=== PATIENT | male | born 1965 | race Caucasian/White ===

== ENCOUNTER 2016-09-23 12:14 | Emergency (ER) | payer MEDICAID ==
[2014-07-18 07:16] VITALS: BMI 23.6
[~2016-09-23 12:14] MED LIST: CATAPRES0.2 MG PO; DILANTIN100 MG PO; HYDROCODONE-APA1 TAB PO; NORCO 7.5/325 T1 TA1 PO; PERCOCET 10/3251 TA1 PO; PROPRANOLOL HCL20 MG PO; PROVENTIL HFA6.7 GM INH; ROBAXIN-750750 MG PO; SOMA350 MG PO; XANAX1 MG PO; XANAX2 MG PO
== END 2016-09-23 14:15 | disposition home or self-care (01) ==
LOC: D.ER 12:14
DX: M54.16 Radiculopathy, lumbar region (principal); F17.200 Nicotine dependence, unspecified, uncomplicated

== ENCOUNTER 2017-05-23 17:21 | Inpatient (IN) | payer MEDICAID ==
[~2017-05-23] VITALS: Ht 172.7 cm; Wt 72.1 kg
[2017-05-23 17:56] LABS: BASOPHILS 0.1 % (0-2); EOSINOPHILS 0.3 % (0-7); HEMATOCRIT 47.7 % (42.0-54.0); HEMOGLOBIN 17.3 g/dL (13.5-17.5); IMMATURE GRANULOCYTES 0.5 % (0-5); LYMPHOCYTES 11.6 % (15-50); MCH 34.7 pg (26.0-34.0); MCHC 36.3 g/dL (31.0-37.0); MCV 95.6 fL (80.0-100.0); MONOCYTES 4.7 % (2-11); NEUTROPHILS 82.8 % (40-80); PLATELET COUNT 241 10x3/uL (130-400); RBC 4.99 10x6/uL (4.20-6.10); RDW 12.3 % (11.5-14.5); WBC 12.8 10x3/uL (4.8-10.8)
[2017-05-23 18:14] LABS: ALBUMIN 3.8 g/dL (3.4-5.0); ALKALINE PHOSPHATASE 86 U/L (46-116); ALT (SGPT) 31 U/L (10-68); BILIRUBIN - TOTAL 0.19 mg/dL (0.2-1.3); CALC OSMOLALITY 280 mosm/kg (275-300); CALCIUM 9.2 mg/dL (8.5-10.1); CARBON DIOXIDE 31.1 mmol/L (21.0-32.0); CHLORIDE - SERUM 103 mmol/L (98-107); CREATININE - SERUM 0.9 mg/dL (0.6-1.3); GLUCOSE 98 mg/dL (74-106); POTASSIUM - SERUM 4.3 mmol/L (3.5-5.1); PROTEIN - SERUM 7.6 g/dL (6.4-8.2); SODIUM 141 mmol/L (136-145); UREA NITROGEN 12 mg/dL (7-18); eGFR NON AFRICAN AMERICAN > 90 mL/min (90-120)
[2017-05-23 18:36] LABS: CHOL - HDL RATIO 3.9 ratio (2.3-4.9); CHOLESTEROL, TOTAL 220 mg/dL (0-200); CKMB 0.3 U/L (0.0-3.6); CREATINE KINASE 30 UL (21-232); HDL CHOLESTEROL 56 mg/dL (32-96); LDL CHOLESTEROL 124 mg/dL (0-100); LDL-HDL RATIO 2.2 ratio (1.5-3.5); MAGNESIUM - SERUM 2.1 mg/dL (1.8-2.4); PRO BNP 75 pg/mL (0-125); TRIGLYCERIDE 202 mg/dL (30-200)
[2017-05-23 18:37] LABS: TROPONIN-I < 0.017 ng/mL (0.000-0.060)
[2017-05-23] MEDS ORDERED: SEROQUEL100 MG PO (21:58)
[2017-05-23] MEDS ORDERED: COREG6.25 MG PO (21:58)
[2017-05-23] MEDS ORDERED: LIPITOR40 MG PO (21:59)
[2017-05-23 22:04] VITALS: BMI 25.1
[2017-05-24] VITALS: BP 123/72
[2017-05-24 01:08] LABS: CKMB 0.6 U/L (0.0-3.6); CREATINE KINASE 25 UL (21-232)
[2017-05-24 01:12] LABS: TROPONIN-I < 0.017 ng/mL (0.000-0.060)
[2017-05-24 04:00] VITALS: BP 125/73
[2017-05-24 06:40] LABS: BASOPHILS 0.1 % (0-2); EOSINOPHILS 1.4 % (0-7); HEMATOCRIT 43.1 % (42.0-54.0); HEMOGLOBIN 15.3 g/dL (13.5-17.5); IMMATURE GRANULOCYTES 0.2 % (0-5); LYMPHOCYTES 19.9 % (15-50); MCH 33.8 pg (26.0-34.0); MCHC 35.5 g/dL (31.0-37.0); MCV 95.4 fL (80.0-100.0); MEAN PLATELET VOLUME 9.1 fL (7.4-10.4); NEUTROPHILS 69.4 % (40-80); PLATELET COUNT 212 10x3/uL (130-400); RBC 4.52 10x6/uL (4.20-6.10); RDW 12.5 % (11.5-14.5)
[2017-05-24 07:14] LABS: CALC OSMOLALITY 276 mosm/kg (275-300); CALCIUM 8.4 mg/dL (8.5-10.1); CHLORIDE - SERUM 102 mmol/L (98-107); CKMB 0.5 U/L (0.0-3.6); CREATINE KINASE 23 UL (21-232); CREATININE - SERUM 0.8 mg/dL (0.6-1.3); GLUCOSE 106 mg/dL (74-106); POTASSIUM - SERUM 3.7 mmol/L (3.5-5.1); SODIUM 139 mmol/L (136-145); TROPONIN-I < 0.017 ng/mL (0.000-0.060); UREA NITROGEN 9 mg/dL (7-18); eGFR NON AFRICAN AMERICAN > 90 mL/min (90-120)
[2017-05-24 07:35] VITALS: BP 109/71
[2017-05-24 11:55] VITALS: BP 109/81
[2017-05-24 12:00] LABS: CKMB 0.4 U/L (0.0-3.6); CREATINE KINASE 29 UL (21-232)
[2017-05-24 12:04] LABS: TROPONIN-I < 0.017 ng/mL (0.000-0.060)
[2017-05-24 15:09] VITALS: BP 129/82
[2017-05-24 20:36] VITALS: BP 127/78
[2017-05-25 01:20] VITALS: BP 89/49
[2017-05-25 05:31] VITALS: BP 100/63
[2017-05-25 08:04] VITALS: BP 112/64
[2017-05-25 13:22] VITALS: BP 106/64
[2017-05-25 15:45] VITALS: BP 104/66
[2017-05-25 19:00] VITALS: BP 112/66
[2017-05-26 04:00] VITALS: BP 114/62
[2017-05-26 05:12] LABS: BASOPHILS 0 % (0-2); EOSINOPHILS 0.3 % (0-7); HEMATOCRIT 42.9 % (42.0-54.0); HEMOGLOBIN 15.4 g/dL (13.5-17.5); IMMATURE GRANULOCYTES 0.4 % (0-5); MCH 34.1 pg (26.0-34.0); MCHC 35.9 g/dL (31.0-37.0); MCV 95.1 fL (80.0-100.0); MEAN PLATELET VOLUME 9.4 fL (7.4-10.4); NEUTROPHILS 83.3 % (40-80); PLATELET COUNT 210 10x3/uL (130-400); RBC 4.51 10x6/uL (4.20-6.10); RDW 12.2 % (11.5-14.5); WBC 12.8 10x3/uL (4.8-10.8)
[2017-05-26 05:35] LABS: ALBUMIN 3.5 g/dL (3.4-5.0); ANION GAP 11.3 mmol/L (8-16); BILIRUBIN - TOTAL 0.19 mg/dL (0.2-1.3); CALCIUM 9.8 mg/dL (8.5-10.1); CARBON DIOXIDE 30.8 mmol/L (21.0-32.0); POTASSIUM - SERUM 4.1 mmol/L (3.5-5.1); PROTEIN - SERUM 6.7 g/dL (6.4-8.2)
[2017-05-26 05:38] LABS: CREATININE - SERUM 1.4 mg/dL (0.6-1.3)
[2017-05-26 08:31] VITALS: BP 128/73
[2017-05-26 12:00] VITALS: BP 126/71
[2017-05-26 19:00] VITALS: BP 132/76
[2017-05-27 04:00] VITALS: BP 122/62
[2017-05-27 06:04] LABS: BASOPHILS 0.1 % (0-2); EOSINOPHILS 1.7 % (0-7); HEMATOCRIT 44.5 % (42.0-54.0); HEMOGLOBIN 15.9 g/dL (13.5-17.5); IMMATURE GRANULOCYTES 0.3 % (0-5); LYMPHOCYTES 16.3 % (15-50); MCH 34.4 pg (26.0-34.0); MCHC 35.7 g/dL (31.0-37.0); MCV 96.3 fL (80.0-100.0); MEAN PLATELET VOLUME 9.4 fL (7.4-10.4); MONOCYTES 5.6 % (2-11); PLATELET COUNT 199 10x3/uL (130-400); RBC 4.62 10x6/uL (4.20-6.10); RDW 12.4 % (11.5-14.5); WBC 11.7 10x3/uL (4.8-10.8)
[2017-05-27 06:25] LABS: ALBUMIN 3.3 g/dL (3.4-5.0); ALKALINE PHOSPHATASE 80 U/L (46-116); ALT (SGPT) 27 U/L (10-68); BILIRUBIN - TOTAL 0.11 mg/dL (0.2-1.3); CALCIUM 8.9 mg/dL (8.5-10.1); CARBON DIOXIDE 27.4 mmol/L (21.0-32.0); CHLORIDE - SERUM 104 mmol/L (98-107); GLUCOSE 117 mg/dL (74-106); POTASSIUM - SERUM 3.7 mmol/L (3.5-5.1); PROTEIN - SERUM 6.9 g/dL (6.4-8.2); SODIUM 139 mmol/L (136-145)
[2017-05-27 06:28] LABS: CALC OSMOLALITY 279 mosm/kg (275-300); CREATININE - SERUM 0.9 mg/dL (0.6-1.3); UREA NITROGEN 16 mg/dL (7-18)
[2017-05-27 06:29] LABS: eGFR NON AFRICAN AMERICAN > 90 mL/min (90-120)
[2017-05-27 08:11] VITALS: BP 113/73
[2017-05-27 12:20] VITALS: Ht 172.7 cm; Wt 72.1 kg
[2017-05-27 12:29] VITALS: BP 112/71
[2017-05-27] MEDS ORDERED: PREDNISONE10 MG PO (13:55)
[2017-05-27] MEDS ORDERED: NICODERM C1 PATCH .1 TRANSDERM (13:55)
[2017-05-27] MEDS ORDERED: LEVAQUIN750 MG PO (13:56)
== END 2017-05-27 15:44 | disposition home or self-care (01) | DRG 190 ==
LOC: D.ER 17:21 → D.M2 21:10
PROVIDERS: Emergency Medicine; Family Medicine
DX: J44.0 Chronic obstructive pulmonary disease with (acute) lower respiratory infection (principal); J18.9 Pneumonia, unspecified organism; J98.11 Atelectasis; F17.203 Nicotine dependence unspecified, with withdrawal; I25.10 Atherosclerotic heart disease of native coronary artery without angina pectoris; E78.5 Hyperlipidemia, unspecified; G40.909 Epilepsy, unspecified, not intractable, without status epilepticus; I10 Essential (primary) hypertension; F41.9 Anxiety disorder, unspecified; Z95.1 Presence of aortocoronary bypass graft; J44.1 Chronic obstructive pulmonary disease with (acute) exacerbation; G89.4 Chronic pain syndrome

== ENCOUNTER 2017-10-17 16:36 | Emergency (ER) | payer MEDICAID ==
[2017-05-27 12:20] VITALS: BMI 24.1
[~2017-10-17 16:36] MED LIST changes: +COREG6.25 MG PO; +LEVAQUIN750 MG PO; +LIPITOR40 MG PO; +NICODERM C1 PATCH .1 TRANSDERM; +PREDNISONE10 MG PO; +SEROQUEL100 MG PO
[2017-10-17 17:10] LABS: BASOPHILS 0.1 % (0-2); EOSINOPHILS 2.3 % (0-7); HEMOGLOBIN 16.3 g/dL (13.5-17.5); IMMATURE GRANULOCYTES 0.4 % (0-5); LYMPHOCYTES 22.7 % (15-50); MCH 34.5 pg (26.0-34.0); MCV 93.2 fL (80.0-100.0); MEAN PLATELET VOLUME 9.4 fL (7.4-10.4); MONOCYTES 5.4 % (2-11); NEUTROPHILS 69.1 % (40-80); PLATELET COUNT 201 10x3/uL (130-400); RBC 4.72 10x6/uL (4.20-6.10); RDW 12.4 % (11.5-14.5); WBC 7.7 10x3/uL (4.8-10.8)
[2017-10-17 17:29] LABS: ALBUMIN 3.4 g/dL (3.4-5.0); ALKALINE PHOSPHATASE 82 U/L (46-116); ALT (SGPT) 21 U/L (10-68); BILIRUBIN - TOTAL 0.48 mg/dL (0.2-1.3); CALC OSMOLALITY 276 mosm/kg (275-300); CALCIUM 8.8 mg/dL (8.5-10.1); CARBON DIOXIDE 25.3 mmol/L (21.0-32.0); CHLORIDE - SERUM 106 mmol/L (98-107); CREATININE - SERUM 0.7 mg/dL (0.6-1.3); GLUCOSE 103 mg/dL (74-106); POTASSIUM - SERUM 3.6 mmol/L (3.5-5.1); SODIUM 140 mmol/L (136-145); UREA NITROGEN 7 mg/dL (7-18); eGFR NON AFRICAN AMERICAN > 90 mL/min (90-120)
[2017-10-17 17:40] LABS: CKMB 0.1 U/L (0.0-3.6); CREATINE KINASE 38 UL (21-232); TROPONIN-I < 0.017 ng/mL (0.000-0.060)
== END 2017-10-17 20:45 | disposition home or self-care (01) ==
LOC: D.ER 16:36
PROVIDERS: Emergency Medicine
DX: R07.9 Chest pain, unspecified (principal); R00.0 Tachycardia, unspecified; F17.200 Nicotine dependence, unspecified, uncomplicated

== ENCOUNTER 2017-11-14 17:06 | Inpatient (IN) | payer MEDICAID ==
[~2017-11-14] VITALS: Ht 172.7 cm; Wt 71.3 kg
[2017-11-14] MEDS ORDERED: PERCOCET 10/3251 TA1 PO (17:20)
[2017-11-14 17:39] VITALS: BP 118/70
[2017-11-14 17:47] LABS: BASOPHILS 0.1 % (0-2); EOSINOPHILS 2.2 % (0-7); HEMATOCRIT 40.8 % (42.0-54.0); HEMOGLOBIN 14.6 g/dL (13.5-17.5); IMMATURE GRANULOCYTES 0.2 % (0-5); LYMPHOCYTES 22.9 % (15-50); MCH 34.3 pg (26.0-34.0); MCHC 35.8 g/dL (31.0-37.0); MCV 95.8 fL (80.0-100.0); MEAN PLATELET VOLUME 8.9 fL (7.4-10.4); MONOCYTES 7.8 % (2-11); NEUTROPHILS 66.8 % (40-80); PLATELET COUNT 195 10x3/uL (130-400); RBC 4.26 10x6/uL (4.20-6.10); RDW 12.8 % (11.5-14.5); WBC 8.9 10x3/uL (4.8-10.8)
[2017-11-14 17:54] LABS: APTT 30.7 SECONDS (22.8-39.4); INR 1.02 (0.85-1.17)
[2017-11-14 17:58] LABS: ALBUMIN 3.1 g/dL (3.4-5.0); ALKALINE PHOSPHATASE 82 U/L (46-116); ALT (SGPT) 21 U/L (10-68); BILIRUBIN - TOTAL 0.15 mg/dL (0.2-1.3); CALC OSMOLALITY 277 mosm/kg (275-300); CALCIUM 8.5 mg/dL (8.5-10.1); CARBON DIOXIDE 25.2 mmol/L (21.0-32.0); CHLORIDE - SERUM 106 mmol/L (98-107); CREATININE - SERUM 0.9 mg/dL (0.6-1.3); GLUCOSE 120 mg/dL (74-106); PROTEIN - SERUM 6.5 g/dL (6.4-8.2); SODIUM 140 mmol/L (136-145); UREA NITROGEN 6 mg/dL (7-18); eGFR NON AFRICAN AMERICAN > 90 mL/min (90-120)
[2017-11-14 18:06] LABS: POTASSIUM - SERUM 2.9 mmol/L (3.5-5.1)
[2017-11-14 18:09] LABS: CKMB 0.6 U/L (0.0-3.6); CREATINE KINASE 43 UL (21-232); PRO BNP 188 pg/mL (0-125); TROPONIN-I < 0.017 ng/mL (0.000-0.060)
[2017-11-14] MEDS ORDERED: K-DUR20 MEQ PO (18:20)
[2017-11-14 20:30] VITALS: BP 122/71; BMI 23.3
[2017-11-14 23:35] LABS: CKMB 0.7 U/L (0.0-3.6); CREATINE KINASE 51 UL (21-232)
[2017-11-14 23:36] LABS: TROPONIN-I < 0.017 ng/mL (0.000-0.060)
[2017-11-15 00:30] VITALS: BP 100/57
[2017-11-15 04:30] VITALS: BP 103/65
[2017-11-15 06:43] LABS: CKMB 1.1 U/L (0.0-3.6); CREATINE KINASE 70 UL (21-232); TROPONIN-I < 0.017 ng/mL (0.000-0.060)
[2017-11-15 07:49] VITALS: BP 129/58
[2017-11-15 11:50] VITALS: BP 109/67
[2017-11-15 15:56] VITALS: BP 120/70
[2017-11-15 20:30] VITALS: BP 97/57
[2017-11-16 00:30] VITALS: BP 95/59
[2017-11-16 04:30] VITALS: BP 98/57
[2017-11-16 05:24] LABS: BASOPHILS 0.1 % (0-2); EOSINOPHILS 2.7 % (0-7); HEMATOCRIT 46.8 % (42.0-54.0); HEMOGLOBIN 16.6 g/dL (13.5-17.5); IMMATURE GRANULOCYTES 0.2 % (0-5); LYMPHOCYTES 23.5 % (15-50); MCH 34.6 pg (26.0-34.0); MCHC 35.5 g/dL (31.0-37.0); MCV 97.5 fL (80.0-100.0); MEAN PLATELET VOLUME 9.5 fL (7.4-10.4); MONOCYTES 6.9 % (2-11); NEUTROPHILS 66.6 % (40-80); PLATELET COUNT 217 10x3/uL (130-400); RDW 12.8 % (11.5-14.5); WBC 8.5 10x3/uL (4.8-10.8)
[2017-11-16 06:00] LABS: ALBUMIN 3.3 g/dL (3.4-5.0); ALKALINE PHOSPHATASE 94 U/L (46-116); ALT (SGPT) 22 U/L (10-68); BILIRUBIN - TOTAL 0.23 mg/dL (0.2-1.3); CALC OSMOLALITY 281 mosm/kg (275-300); CALCIUM 9.1 mg/dL (8.5-10.1); CHLORIDE - SERUM 104 mmol/L (98-107); CREATININE - SERUM 0.9 mg/dL (0.6-1.3); GLUCOSE 113 mg/dL (74-106); POTASSIUM - SERUM 4.6 mmol/L (3.5-5.1); PROTEIN - SERUM 7.3 g/dL (6.4-8.2); SODIUM 142 mmol/L (136-145); UREA NITROGEN 7 mg/dL (7-18); eGFR NON AFRICAN AMERICAN > 90 mL/min (90-120)
[2017-11-16 07:40] VITALS: BP 91/60
[2017-11-16 11:41] VITALS: BP 108/57
[2017-11-16 13:22] VITALS: Ht 172.7 cm; Wt 71.3 kg
[2017-11-16 15:17] VITALS: BP 124/64
[2017-11-16 20:00] VITALS: BP 101/66
[2017-11-17] VITALS: BP 105/58
[2017-11-17 05:27] LABS: BASOPHILS 0.1 % (0-2); HEMATOCRIT 43.3 % (42.0-54.0); HEMOGLOBIN 15.5 g/dL (13.5-17.5); IMMATURE GRANULOCYTES 0.3 % (0-5); LYMPHOCYTES 23.3 % (15-50); MCH 34.4 pg (26.0-34.0); MCHC 35.8 g/dL (31.0-37.0); MCV 96.2 fL (80.0-100.0); MEAN PLATELET VOLUME 9.1 fL (7.4-10.4); MONOCYTES 8.3 % (2-11); PLATELET COUNT 177 10x3/uL (130-400); RDW 12.5 % (11.5-14.5); WBC 7.5 10x3/uL (4.8-10.8)
[2017-11-17 05:57] LABS: ALKALINE PHOSPHATASE 83 U/L (46-116); ALT (SGPT) 18 U/L (10-68); CALC OSMOLALITY 272 mosm/kg (275-300); CALCIUM 8.7 mg/dL (8.5-10.1); CARBON DIOXIDE 30.5 mmol/L (21.0-32.0); CHLORIDE - SERUM 103 mmol/L (98-107); CREATININE - SERUM 0.9 mg/dL (0.6-1.3); GLUCOSE 120 mg/dL (74-106); PROTEIN - SERUM 6.5 g/dL (6.4-8.2); SODIUM 137 mmol/L (136-145); UREA NITROGEN 8 mg/dL (7-18); eGFR NON AFRICAN AMERICAN > 90 mL/min (90-120)
[2017-11-17 06:17] VITALS: BP 96/59
[2017-11-17 07:41] VITALS: BP 91/53
[2017-11-17 11:52] VITALS: BP 104/56
[2017-11-17] MEDS ORDERED: LEVAQUIN500 MG PO (11:53)
== END 2017-11-17 14:09 | disposition home or self-care (01) | DRG 202 ==
LOC: D.ER 17:06 → D.EDHOLD 18:58 → D.M2 18:58
PROVIDERS: Emergency Medicine
DX: J20.9 Acute bronchitis, unspecified (principal); J44.1 Chronic obstructive pulmonary disease with (acute) exacerbation; F17.203 Nicotine dependence unspecified, with withdrawal; J44.0 Chronic obstructive pulmonary disease with (acute) lower respiratory infection; E78.5 Hyperlipidemia, unspecified; Z76.5 Malingerer [conscious simulation]; I11.0 Hypertensive heart disease with heart failure; I50.9 Heart failure, unspecified; I25.10 Atherosclerotic heart disease of native coronary artery without angina pectoris; F41.9 Anxiety disorder, unspecified; E87.6 Hypokalemia; Z95.1 Presence of aortocoronary bypass graft; Z95.5 Presence of coronary angioplasty implant and graft

== ENCOUNTER 2017-12-13 20:01 | Emergency (ER) | payer MEDICAID ==
[~2017-12-13] VITALS: Ht 172.7 cm; Wt 75.0 kg
[~2017-12-13 20:01] MED LIST changes: +K-DUR20 MEQ PO; +LEVAQUIN500 MG PO
[2017-12-13 20:07] VITALS: Ht 172.7 cm; Wt 75.0 kg
[2017-12-13 20:36] LABS: BASOPHILS 0.1 % (0-2); EOSINOPHILS 1.3 % (0-7); HEMATOCRIT 43.2 % (42.0-54.0); HEMOGLOBIN 15.5 g/dL (13.5-17.5); IMMATURE GRANULOCYTES 0.3 % (0-5); LYMPHOCYTES 16.6 % (15-50); MCH 34.6 pg (26.0-34.0); MCHC 35.9 g/dL (31.0-37.0); MCV 96.4 fL (80.0-100.0); MEAN PLATELET VOLUME 9.4 fL (7.4-10.4); MONOCYTES 4.5 % (2-11); NEUTROPHILS 77.2 % (40-80); PLATELET COUNT 196 10x3/uL (130-400); RBC 4.48 10x6/uL (4.20-6.10); RDW 12.6 % (11.5-14.5); WBC 11.5 10x3/uL (4.8-10.8)
[2017-12-13 20:56] LABS: ALBUMIN 3.4 g/dL (3.4-5.0); ALKALINE PHOSPHATASE 82 U/L (46-116); ALT (SGPT) 32 U/L (10-68); BILIRUBIN - TOTAL 0.27 mg/dL (0.2-1.3); CALC OSMOLALITY 281 mosm/kg (275-300); CALCIUM 8.2 mg/dL (8.5-10.1); CARBON DIOXIDE 28.7 mmol/L (21.0-32.0); CHLORIDE - SERUM 105 mmol/L (98-107); CREATININE - SERUM 0.8 mg/dL (0.6-1.3); GLUCOSE 110 mg/dL (74-106); POTASSIUM - SERUM 3.9 mmol/L (3.5-5.1); SODIUM 141 mmol/L (136-145); UREA NITROGEN 12 mg/dL (7-18); eGFR NON AFRICAN AMERICAN > 90 mL/min (90-120)
[2017-12-13 20:58] LABS: CREATINE KINASE 30 UL (21-232); LIPASE 177 U/L (73-393); MAGNESIUM - SERUM 2.1 mg/dL (1.8-2.4); PHENYTOIN (DILANTIN) 13.4 ug/mL (10.0-20.0); PRO BNP 75 pg/mL (0-125)
[2017-12-13 21:01] LABS: TROPONIN-I < 0.017 ng/mL (0.000-0.060)
[2017-12-13 21:05] LABS: APPEARANCE CLEAR (CLEAR); COLOR YELLOW (YELLOW); GLUCOSE 50 mg/dL (NEGATIVE); NITRITE NEGATIVE (NEGATIVE); PROTEIN NEGATIVE (NEGATIVE); SPECIFIC GRAVITY 1.025 (1.005-1.020)
[2017-12-13 21:06] LABS: BILIRUBIN NEGATIVE (NEGATIVE); KETONE NEGATIVE (NEGATIVE); UROBILINOGEN NORMAL (NORMAL)
[2017-12-13 21:14] LABS: UDS - AMPHET NEGATIVE QUAL (NEGATIVE); UDS - BARB NEGATIVE QUAL (NEGATIVE); UDS - BENZO NEGATIVE QUAL (NEGATIVE); UDS - COCAINE NEGATIVE QUAL (NEGATIVE); UDS - OPIATE POSITIVE QUAL (NEGATIVE); UDS - PCP NEGATIVE QUAL (NEGATIVE); UDS - THC POSITIVE QUAL (NEGATIVE)
[2017-12-13] MEDS ORDERED: KEPPRA500 MG PO (21:18)
[2017-12-13 21:32] VITALS: BP 111/69
== END 2017-12-13 21:36 | disposition home or self-care (01) ==
LOC: D.ER 20:01
PROVIDERS: Family Medicine
DX: G40.909 Epilepsy, unspecified, not intractable, without status epilepticus (principal); Z86.79 Personal history of other diseases of the circulatory system; R51 Headache; M54.2 Cervicalgia

== ENCOUNTER 2018-03-26 16:55 | Observation (INO) | payer MEDICAID ==
[~2018-03-26] VITALS: Ht 172.7 cm; Wt 74.4 kg
--- NOTE | ~2018-03-26 | HEMODYNAMI ---
PATIENT:KRISTINA ALMAZAN MEDICAL RECORD: [id number] : 63 LOCATION:[place] [address] ADMISSION DATE: 03/26/18 Generatedon:03/27/201810:28 Patient name: KRISTINA ALMAZAN Patient #: [id number] SSN: DO B: 1965 Date of study: 03/27/2018 Page: Of Hemodynamic Procedure Report Patient Data Patient Demographics Procedure consent was obtained First Name: KRISTINA Gender: Male Last Name: NORAH : 1965 Middle Initial: T Age: 53 year(s) Patient #: [id number] Race: Unknown Additional ID: [id number] Contact details [address]: [address] [place] [address] State: [place] City: [place] Zip code: [address] Past Medical History Allergies Allergen Reaction Date Comments Reported Other allergy 03/27/2018 SULFA, TRAMADOL Admission Admission Data Admission Date: 03/26/2018 Admission Time: 18:17 Room #: [facility] Lab Results Lab Result Date: 03/27/2018 Lab Result Time: 0:00 Biochemistry Name Units Result Min Max BUN mg/dl 5 -*(----)-- 7 18 Creatinine mg/dl 0.8 --(-*--)-- 0.6 1.3 CBC Name Units Result Min Max Hemoglobin g/dl 15.5 --(-*--)-- 13.5 17.5 Procedure Procedure Types Cath Procedure Diagnostic Procedure LHC LHC w/Coronaries w/Grafts Sedation Charges Moderate Sedation up to 15 minutes Procedure Description Procedure Date Procedure Date: 03/27/2018 Procedure Start Time: 10:10 Procedure End Time: 10:26 Procedure Staff Name Function Miguel Mccauley MD Performing Physician Kathy Lawrence RT Monitor Ronald Ortega RN Nurse Cesar Parikh RT Scrub Procedure Data Cath Procedure Fluoroscopy Diagnostic fluoroscopy Total fluoroscopy Time: 2.9 time: 2.9 min min Diagnostic fluoroscopy Total fluoroscopy dose: 572 dose: 572 mGy mGy Contrast Material Contrast Material Type Amount (ml) Isovue 300 87 Entry Location Entry Primary Successful Side Size Upsize Upsize Entry Closure Succes sful Closure Location (Fr) 1 (Fr) 2 (Fr) Remarks Device Remarks Femoral Right 5 Fr Exoseal artery Estimated blood loss: 5 ml Diagnostic catheters Device Type Used For End Catheter Placement MULTIPACK JL 4.0 5Fr Procedure catheter DIAGNOSTIC JL 3.5 5Fr Procedure catheter ([id number]) MULTIPACK 3DRC 5Fr Procedure catheter MULTIPACK Pigtail 5 Fr Procedure catheter Procedure Complications No complications Procedure Medications Medication Administration Route Dosage Oxygen etCO2 Nasal cannula 2 l/min Heparin Flush Bag added to field 2 bags (1000units/500ml NS) 0.9% NaCl I.V. 100 ml/hr Fentanyl I.V. 50 mcg Versed I.V. 1 mg Fentanyl I.V. 50 mcg Versed I.V. 1 mg Hemodynamics Rest HGB: 15.5 (g/dl) Heart Rate: 102 (bpm) Pressure Samples Time Site Value (mmHg) Purpose Heart Use Rate(bpm) 10:22 LV 109/-8,14 EDP 100 10:22 AO 95/55(72) Pullback 99 10:22 LV 97/16,17 Pullback 99 Gradients Valve Time Site 1 Site 2 Mean SEP/DFP Peak To Heart Use (mmHg) (sec/min) Peak Rate (mmHg) (bpm) Aortic 10:22 LV AO 8 21 2 99 97/16,17 95/55(72) Calculations Valve P-P Mean Valve Index Valve Source Name Gradient Area Flow (cm2) Aortic 2 8 2 8 Snapshots Pre Cath Intra NCS Post Cath Vital Signs Time Heart Resp SPO2 etCO2 NIBP (mmHg) Rhythm Pain Sedation Rate (ipm) (%) (mmHg) Status Level (bpm) 9:46:38 101 16 96 0 128/84(102) NSR 0 (11) 10(A) , No pain 9:50:46 101 15 94 0 122/80(97) NSR 0 (11) 10(A) , No pain 9:54:58 101 16 96 0 115/76(86) NSR 0 (11) 10(A) , No pain 9:59:02 100 16 97 30 115/78(90) NSR 0 (11) 10(A) , No pain 10:03:05 99 16 98 27.7 116/85(99) NSR 0 (11) 10(A) , No pain 10:07:15 96 17 98 32.9 120/70(91) NSR 0 (11) 10(A) , No pain 10:11:25 100 17 98 38.2 111/74(89) NSR 0 (11) 10(A) , No pain 10:15:35 99 16 98 39 109/70(101) NSR 0 (11) 9(A) , No pain 10:20:28 100 16 99 42.7 127/71(94) NSR 0 (11) 9(A) , No pain 10:24:40 99 17 98 36 117/68(93) NSR 0 (11) 9(A) , No pain 10:26:12 98 17 99 27 113/66(92) NSR 0 (11) 9(A) , No pain Medications Time Medication Route Dose Verified Delivered Reason Notes Effe ctiveness by by 10:08:08 Oxygen etCO2 2 Miguel Ronald Per Nasal l/min Garrick Ortega RN physician cannula 10:08:16 Heparin Flush added 2 Miguel Ronald used for Bag to bags Garrick Ortega RN procedure (1000units/500ml field NS) 10:08:25 0.9% NaCl I.V. 100 Miguel Ronald Per ml/hr Garrick Ortega RN physician 10:08:52 Fentanyl I.V. 50 Miguel Ronald for mcg Garrick Ortega RN sedation 10:08:59 Versed I.V. 1 mg Miguel Ronald for Garrick Ortega RN sedation 10:11:51 Fentanyl I.V. 50 Miguel Ronald for mcg Garrick Ortega RN sedation 10:11:55 Versed I.V. 1 mg Miguel Ronald for Garrick Ortega RN sedation Procedure Log Time Note 9:26:32 Cesar DAVIS(R) sent for patient. Start room use. 9:26:32 Time tracking: Call back (After hours or weekends) 9:26:37 Plan of Care:Hemodynamics will remain stable., Cardiac rhythm will remain stable., Comfort level will be maintained., Respiratory function will remain adequate., Patient/ family verbilizes understanding of procedure., Procedure tolerated without complication., Recovers from procedure without complications.. 9:31:42 Patient allergic to Other allergySULFA, TRAMADOL 9:32:02 Lab Result : BUN 5 mg/dl 9:32:02 Lab Result : Creatinine 0.8 mg/dl 9:32:02 Lab Result : Hemoglobin 15.5 g/dl 9:38:12 Patient received from Med II to CCL 1 Alert and oriented. Tansferred to table in Supine position. 9:38:13 Warm blankets applied, and vlaentine hugger turned on for patient comfort. 9:38:15 Correct patient and procedure confirmed by team. 9:38:17 Signed procedure consent form obtained from patient. 9:38:18 ECG and BP/O2 sat monitors applied to patient. 9:45:39 Vital chart was started 9:47:20 Baseline sample Acquired. 9:47:33 Rhythm: sinus tachycardia 9:47:34 Full Disclosure recording started 9:47:37 Pre-procedure instructions explained to patient. 9:47:38 Pre-op teaching completed and patient verbalized understanding. 9:47:41 Patient NPO since Midnight. 9:47:42 Is the patient allergic to Iodine/contrast media? No. 9:47:50 Patient diabetic? No. 9:47:55 Previous problem with sedation/anesthesia? No ? 9:47:56 Snore? Yes 9:47:57 Sleep apnea? No 9:47:58 Deviated septum? No 9:48:00 Opens mouth fully? Yes 9:48:01 Sticks out tongue? Yes 9:48:32 Airway obstruction? Yes COPD 9:48:35 Dentures? No ? 9:48:40 Pre procedure: right dorsailis pedis pulse 1+ Palpable, but thready & weak; easily obliterated 9:48:49 IV patent on arrival in left hand with 0.9% NaCl at [facility]. 9:48:54 Lab results completed and on chart. 9:48:57 Right groin area was prepped with chlora-prep and draped in sterile fashion 9:48:58 Alarms reviewed by R. N. 9:48:58 Sharps counted by scrub and verified by R.N. 9:49:02 Use device set Femoral Dx 9:49:03 ACIST Syringe (46551) opened to sterile field. 9:49:04 Bag Decanter (2002) opened to sterile field. 9:49:05 ACIST Hand Control (57065) opened to sterile field. 9:49:05 ACIST Manifold (38636) opened to sterile field. 9:49:07 Tegaderm 4 x 4 (1626W) opened to sterile field. 9:49:08 Medline Cath Pack ([id number]) opened to sterile field. 9:49:08 DIAGNOSTIC WIRE .035 260cm J wire (868736) opened to sterile field. 9:49:10 DIAGNOSTIC Multipack 5Fr catheter set ([id number]) opened to sterile field. 9:49:11 MICROPUNCTURE 4FR Cook ([id number]) opened to sterile field. 9:49:13 SHEATH Prelude 5Fr 0.035 ([id number]-8B-47-035) opened to sterile field. 9:51:12 STOPCOCK 3-Way Large Bore ([id number]) opened to sterile field. 10:01:34 IV left hand D/C'd due to infiltration. 10:01:46 IV started by Ronald Ortega RN inleft forearm with a 22 gauge IV catheter with 0.9% NaCl at O. 10:07:45 --------ALL STOP TIME OUT------ 10:07:46 Final Timeout: patient, procedure, and site verified with staff and physician. All members of the team are in agreement. 10:07:48 Right groin site verified by team. 10:07:59 Physical assessment completed. ASA score P 2 - A patient with mild systemic disease as per Miguel Mccauley MD. 10:08:03 Sedation plan: IV Moderate Sedation Medication:Versed, Fentanyl 10:08:08 Oxygen 2 l/min etCO2 Nasal cannula was administered by Ronald Ortega RN; Per physician; 10:08:16 Heparin Flush Bag (1000units/500ml NS) 2 bags added to field was administered by Ronald Ortega RN; used for procedure; 10:08:25 0.9% NaCl 100 ml/hr I.V. was administered by Ronald Ortega RN; Per physician; 10:08:52 Fentanyl 50 mcg I.V. was administered by Ronald Ortega RN; for sedation; 10:08:59 Versed 1 mg I.V. was administered by Ronald Ortega RN; for sedation; 10:10:03 Zero performed for pressure channel P1 10:10:10 Procedure started. 10:10:30 Local anesthetic to right femoral artery with Lidocaine 2% by Miguel Mccauley MD.INITIAL ACCESS ONLY 10:11:43 Access obtained with 4Fr micropunture. 10:11:51 Fentanyl 50 mcg I.V. was administered by Ronald Ortega RN; for sedation; 10::55 Versed 1 mg I.V. was administered by Ronald Ortega RN; for sedation; 10::55 A 5 Fr sheath was inserted into the Right Femoral artery 10:12:18 A MULTIPACK JL 4.0 5Fr catheter was advanced over the wire and used for Procedure. 10:14:18 LCA angiography performed. 10:14:42 Catheter exchanged over wire. 10:14:57 A DIAGNOSTIC JL 3.5 5Fr catheter ([id number]) was advanced over the wire and used for Procedure. 10:16:25 LCA angiography performed. 10:16:26 Catheter exchanged over wire. 10:16:54 A MULTIPACK 3DRC 5Fr catheter was advanced over the wire and used for Procedure. 10:18:15 RCA angiography performed. 10:19:06 SVG to Circ angiography performed. 10:20:16 BLANC to LAD angiography performed. 10:20:50 Catheter exchanged over wire. 10:21:14 A MULTIPACK Pigtail 5 Fr catheter was advanced over the wire and used for Procedure. 10:21:45 LV gram done using FOOTE 10::55 Injector settings: Ml/sec: 12, Volume: 8, 10:22:19 LV hemodynamics recorded. 10:22:57 EF : 65 % 10:22:59 Catheter removed. 10:23:01 EXOSEAL 5Fr (EX500) opened to sterile field. 10:23:33 Sheath removed intact; hemostasis achieved with Exoseal to the Right Femoral artery. 10:24:00 Procedure ended.(Physican Out) 10:24:46 Fluoroscopy time 02.90 minutes. 10:24:51 Fluoroscopy dose: 572 mGy 10:24:51 Flurop Dose total: 572 10:24:55 Contrast amount:Isovue 300 87ml. 10:24:59 Post-op/insertion site Right Femoral artery dressed using a 4 x 4 and Tegaderm. 10:25:03 Post right femoral artery:stable, soft, clean and dry 10:25:06 Post-procedure physical assessment completed. ASA score P 2 - A patient with mild systemic disease as per Miguel Mccauley MD. 10:25:09 Post procedure rhythm: unchanged. 10:25:13 Estimated blood loss: 5 ml 10:25:15 Post procedure instruction explained to patient.Patient verbalizes understanding. 10:25:15 Patient needs reinforcement of post procedure teaching. 10:25:44 Procedure type changed to Cath procedure, Diagnostic procedure, LHC, LHC w/Coronaries w/Grafts, Sedation Charges, Moderate Sedation up to 15 minutes 10:26:01 Procedure and supply charges have been captured, reviewed, submitted and are correct. 10:26:03 Procedure Complication : No complications 10:26:05 Vital chart was stopped 10:26:06 See physician's report for complete and final results. 10:26:08 Report given to PCU. 10:26:10 Patient transfered to PCU with Bed. 10:26:11 Procedure Stopped 10:26:12 Procedure ended. 10:26:12 Full Disclosure recording stopped 10:26:15 End room use (Document Last) Device Usage Item Name Manufacture Quantity Catalog Number Hospital Part Current M inimal Lot# / Charge Number Stock Stock Serial# Code ACIST Syringe Acist 1 46942 [id number] 813024 958569 2 0 (64270) [employer] Bag Decanter Microtek 1 2001S 452715 13957 199263 5 (2001S) Medical Inc. ACIST Hand Acist 1 57920 151309 095196 391498 5 Control (20729) [employer] Inc ACIST Manifold Acist 1 34728 522604 944740 489611 5 (94711) Medical [employer] Inc Tegaderm 4 x 4 3M 1 1626W 277887 175875 935968 5 (1626W) Medline Cath Medline 1 [id number] 218821 78161 101897 5 Pack ([id number]) DIAGNOSTIC WIRE [facility] [place] 1 040146 431433 207276 154500 3 0 .035 260cm J wire (046231) DIAGNOSTIC Cardinal 1 FG9808 797707 98198 798392 3 0 Multipack 5Fr Health catheter set (WA2230) MICROPUNCTURE KOEZY Medical 1 Q76788 713098 323653 183840 5 4FR Cook (W70949) SHEATH Prelude Merit 1 DIW-6I-51-035 238354 311169 877713 5 5Fr 0.035 Medical (IZO-4P-33-035) STOPCOCK 3-Way Cook Medical 1 U24564 415218 7640 809303 5 Large Bore ([id number]) MULTIPACK JL Cardinal 1 877956 5 4.0 5Fr Health catheter DIAGNOSTIC JL Cardinal 1 [id number] 381864 512848 386692 5 3.5 5Fr Health catheter (810023V) MULTIPACK 3DRC Cardinal 1 707808 5 5Fr catheter Health MULTIPACK Cardinal 1 689126 5 Pigtail 5 Fr Health catheter EXOSEAL 5Fr Cardinal 1 EX500 048141 961802 979948 1 0 (EX500) Health Signature Audit Pringle Stage Time Signature Unsigned Intra-Procedure 03/27/2018 Kathy Lawrence 10:28:47 AM RT(R) Signatures Monitor : Kathy Lawrence Signature : RT Date : Time : [place] [address] [place] [address]
--- NOTE | ~2018-03-26 | EC ---
PATIENT:KRISTINA ALMAZAN DATE OF SERVICE: 03/26/18 SEX: M MEDICAL RECORD: [id number] DATE OF : 63 LOCATION:D.M2 D.211 AGE OF PATIENT: 53 ADMISSION DATE: 03/26/18 REFERRING PHYSICIAN: INTERPRETING PHYSICIAN: KALLI DICKENS MD ECHOCARDIOGRAM REPORT ECHO CHARGES 4 ECHO COMPLETE Date: 03/27/18 CLINICAL DIAGNOSIS: CP ECHOCARDIOGRAPHIC MEASUREMENTS (adult normal given) AC root (d.<3.7cm) 3.0 cm LV Septum d (<1.2 cm> 1.2 cm Valve Excursion 1.7 cm LV Septum (systole) 1.3 cm Left Atria (s.<4.0cm> 2.5 cm LVPW d(<1.2cm) 1.0 cm RV (d.<2.3cm) 2.4 cm LVPW (sytole) 1.0 cm LV diastole(<5.6CM) 4.7 cm MV E-F(>70mm/sec) cm LV systole 3.9 cm LVOT Diameter 1.8 cm MV exc.(>10mm) cm Est.ejection fraction (50-75%) % DOPPLER: LVIT cm/sec A 61 cm/sec E 38 cm/sec LA cm/sec RVSP 18.7 mmHg LVOT 94 cm/sec AOP1/2T m/s Asc. Ao 105 cm/sec RVOT 64 cm/sec RA cm/sec PA 95 cm/sec AV Gradient Peak 4.4 mmHg AV Mean 3.0 mmHg AV Area 2.5 cm MV Gradient Peak 2.0 mmHg MV Mean 1.0 mmHg MV Area cm COMMENTS: Home Aid: [facility] Batch Attendant: Briana Dickens TAPE# PACS Pericardial Effusion N DATE OF SERVICE: HISTORY: The patient is a 53-year-old white male underwent a transthoracic echocardiogram. FINDINGS: 1. Left ventricle is normal size, shape, structure, function, ejection fraction 55%. Inflow characteristics are consistent with diastolic dysfunction. There is evidence of mild left ventricular hypertrophy that is concentric. 2. The left atrium is normal size, shape, structure, and function. ECHOCARDIOGRAM REPORT [id number] KRISTINA ALMAZAN 3. The aortic valve is normal. 4. The mitral valve is normal. 5. The tricuspid valve has trace tricuspid regurgitation. The right ventricular systolic pressure is estimated to be normal. 6. The right ventricle is normal shape, size, structure and function. 7. The right atrium is normal. 8. The pulmonic valve is grossly normal. There is no pericardial effusion. CONCLUSION: The patient has a normal ejection fraction with evidence of mild hypertensive heart disease. TRANSINT:[id number] Voice Confirmation ID: [id number] DOCUMENT ID: [id number] KALLI DICKENS MD CC: [id number] DICTATION DATE: 03/28/18946 PRIMARY TEACHER: 03/28/18 1006 DIS IN 03/27/18 [facility] [address] [place] [address]
--- NOTE | ~2018-03-26 | OP ---
PATIENT NAME: KRISTINA ALMAZAN MEDICAL RECORD: [id number] :63 LOCATION:D. D.2115 ADMISSION DATE:03/26/18 SURGEON: KALLI DICKENS MD DATE OF OPERATION: 03/27/2018 PROCEDURES: Left heart cath, LV gram, coronary angiogram, saphenous vein bypass angiogram, BLANC angiogram, left ventriculogram. PROCEDURE IN DETAIL: The patient was brought into cardiac catheterization lab in stable condition. Both groins were sterilely prepped and draped. The patient had a 6-Romansh sheath placed in the right common femoral artery in a retrograde fashion using modified Seldinger technique. The patient then had serial catheters utilized to selectively intubate the left coronary artery, the right coronary artery, the saphenous vein bypass graft to the circumflex, and the BLANC to the LAD respectively, and multiple angles of angiography were performed. I was then able to enter into the left ventricular cavity for LV gram and measurement of the left ventricular end-diastolic pressures. FINDINGS: 1. Left main has a distal 80% stenosis, mildly calcified. 2. The LAD is shown to have a long area of hypoperfusion that has competitive flow distally with the BLANC. There is approximately 90% stenosis there past the mid diagonal. 3. The circumflex has a mid 80% stenosis. There is competitive flow also seen within the distal circ system. 4. The RCA is free of significant disease, has mild mid plaquing. 5. The saphenous vein bypass graft is 100% open without any restrictions and retrogradely flows into a proximal obtuse marginal branch. 6. The BLANC to the LAD is a wide open vessel, good maturity. There is no evidence of any disease in the body of the BLANC or in the post-anastomotic space. There is retrograde flowing from the BLANC to the proximal diagonal. There were no other vessels seen and it appears that the 2 vessels supply all areas needed with good perfusion and flow through all regions of the myocardium. HEMODYNAMICS: Left ventricular ejection fraction is 65%. There was 2+ mitral regurgitation, it could have been PVC induced, but it would be reasonable to go forward with an echocardiogram to check that out. Otherwise, there is no gradient across the aortic valve. 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 RECOMMENDATIONS: An echocardiogram. Continue aggressive secondary risk factor modification. Look for other etiologies of the patient's chest pain syndrome. TRANSINT:[id number] Voice Confirmation ID: [id number] DOCUMENT ID: [id number] OPERATIVE REPORT [id number] KRISTINA ALMAZAN,KALLI Vicente MD at 2344 CC: [id number] DICTATION DATE: 03/27/18 1028 CLINICAL SERVICES CONSULTANT: 03/27/18 1127 DIS IN 03/27/18 [facility] [address] [place] [address]
--- NOTE | ~2018-03-26 | MORECARE ---
CASE MANAGEMENT DISCHARGE SUMMARY PATIENT: KRISTINA ALMAZAN UNIT: [id number] ADM DATE: 03/26/18 AGE: 53 : 63 SEX: M ROOM/BED: D.2115 AUTHOR: MARGARITO WADDELL PHYSICIAN: REFERRING PHYSICIAN: KIRAN DURAN MD DATE OF SERVICE: 03/29/18 Discharge Plan Patient Name: KRISTINA ALMAZAN [facility] [facility] 1965 Planned Disposition: Home Anticipated Discharge Date: 03/27/18 Discharge Date: 03/27/2018 Expected LOS: 1 Initial Reviewer: [email or web address] Initial Review Date: 03/29/2018 Generated: 03/29/18 9:53 am Patient Name: KRISTINA ALMAZAN Page 69430 at 0854 All edits/amendments must be made on the electronic document DICTATION DATE: 03/29/18 0853 WASTEWATER DESIGN ENGINEER: PALOMO 03/29/1853 RPT#: [id number] DC DATE:03/27/18 STATUS: DIS IN [facility] [address] [facility] [place] [address] END OF REPORT
[~2018-03-26 16:55] MED LIST changes: +KEPPRA500 MG PO
[2018-03-26 17:00] VITALS: BP 132/75
[2018-03-26 17:20] LABS: BASOPHILS 0.1 % (0-2); EOSINOPHILS 1.7 % (0-7); HEMATOCRIT 44.5 % (42.0-54.0); HEMOGLOBIN 16.4 g/dL (13.5-17.5); IMMATURE GRANULOCYTES 0.2 % (0-5); LYMPHOCYTES 21.3 % (15-50); MCH 34.8 pg (26.0-34.0); MCHC 36.9 g/dL (31.0-37.0); MCV 94.5 fL (80.0-100.0); MEAN PLATELET VOLUME 9.1 fL (7.4-10.4); MONOCYTES 5.3 % (2-11); NEUTROPHILS 71.4 % (40-80); PLATELET COUNT 179 10x3/uL (130-400); RBC 4.71 10x6/uL (4.20-6.10); RDW 12.3 % (11.5-14.5); WBC 11.4 10x3/uL (4.8-10.8)
[2018-03-26 17:35] LABS: INR 1.02 (0.85-1.17)
[2018-03-26 17:36] LABS: APTT 31.8 SECONDS (22.8-39.4)
[2018-03-26 18:01] LABS: ALBUMIN 3.4 g/dL (3.4-5.0); ALKALINE PHOSPHATASE 83 U/L (46-116); ALT (SGPT) 27 U/L (10-68); BILIRUBIN - TOTAL 0.31 mg/dL (0.2-1.3); CALC OSMOLALITY 280 mosm/kg (275-300); CALCIUM 8.8 mg/dL (8.5-10.1); CARBON DIOXIDE 31.2 mmol/L (21.0-32.0); CHLORIDE - SERUM 103 mmol/L (98-107); CREATININE - SERUM 0.9 mg/dL (0.6-1.3); GLUCOSE 113 mg/dL (74-106); POTASSIUM - SERUM 3.3 mmol/L (3.5-5.1); PROTEIN - SERUM 7.1 g/dL (6.4-8.2); SODIUM 142 mmol/L (136-145); UREA NITROGEN 4 mg/dL (7-18); eGFR NON AFRICAN AMERICAN > 90 mL/min (90-120)
[2018-03-26 18:32] LABS: CKMB 0.4 U/L (0.0-3.6); CREATINE KINASE 34 UL (21-232); TROPONIN-I < 0.017 ng/mL (0.000-0.060)
[2018-03-26 20:00] VITALS: BP 117/76
[2018-03-26 21:21] VITALS: BP 157/91; BMI 25.0
[2018-03-27] VITALS: BP 106/60
[2018-03-27 04:00] VITALS: BP 101/60
[2018-03-27 08:00] VITALS: BP 108/72
[2018-03-27 08:12] VITALS: BMI 24.9
[2018-03-27 08:30] LABS: BASOPHILS 0.1 % (0-2); HEMATOCRIT 42.4 % (42.0-54.0); HEMOGLOBIN 15.5 g/dL (13.5-17.5); IMMATURE GRANULOCYTES 0.2 % (0-5); LYMPHOCYTES 9.6 % (15-50); MCH 35.1 pg (26.0-34.0); MCHC 36.6 g/dL (31.0-37.0); MCV 96.1 fL (80.0-100.0); MEAN PLATELET VOLUME 9.3 fL (7.4-10.4); MONOCYTES 5.4 % (2-11); NEUTROPHILS 83.7 % (40-80); PLATELET COUNT 161 10x3/uL (130-400); RBC 4.41 10x6/uL (4.20-6.10); RDW 12.6 % (11.5-14.5); WBC 13.1 10x3/uL (4.8-10.8)
[2018-03-27 08:45] LABS: CALC OSMOLALITY 278 mosm/kg (275-300); CALCIUM 8.9 mg/dL (8.5-10.1); CARBON DIOXIDE 31.5 mmol/L (21.0-32.0); CHLORIDE - SERUM 106 mmol/L (98-107); CREATININE - SERUM 0.8 mg/dL (0.6-1.3); GLUCOSE 111 mg/dL (74-106); SODIUM 141 mmol/L (136-145); UREA NITROGEN 5 mg/dL (7-18); eGFR NON AFRICAN AMERICAN > 90 mL/min (90-120)
[2018-03-27 10:34] VITALS: Ht 172.7 cm; Wt 74.4 kg
[2018-03-27] MEDS ORDERED: ZPAK PO (13:28)
[2018-03-27] MEDS ORDERED: NORCO 10-325 TA1 TAB PO (13:28)
[2018-03-27] MEDS ORDERED: PROTONIX40 MG PO (13:28)
== END 2018-03-27 14:37 | disposition home or self-care (01) ==
LOC: D.ER 16:55 → D.M2 18:17 → OBSVTIME 18:17 → D.M2 03-27 14:37
PROVIDERS: Emergency Medicine; Internal Medicine Cardiovascular Disease
DX: J20.9 Acute bronchitis, unspecified (principal); J44.0 Chronic obstructive pulmonary disease with (acute) lower respiratory infection; I25.10 Atherosclerotic heart disease of native coronary artery without angina pectoris; Z95.1 Presence of aortocoronary bypass graft; Z95.5 Presence of coronary angioplasty implant and graft; I11.0 Hypertensive heart disease with heart failure; I50.9 Heart failure, unspecified; E78.5 Hyperlipidemia, unspecified; F17.213 Nicotine dependence, cigarettes, with withdrawal; F41.9 Anxiety disorder, unspecified; G89.29 Other chronic pain; M54.9 Dorsalgia, unspecified; G40.909 Epilepsy, unspecified, not intractable, without status epilepticus; I34.0 Nonrheumatic mitral (valve) insufficiency

== ENCOUNTER 2018-06-18 08:10 | Inpatient (IN) | payer MEDICAID ==
[~2018-06-18] VITALS: Ht 172.7 cm; Wt 76.4 kg
[~2018-06-18 08:10] MED LIST changes: +NORCO 10-325 TA1 TAB PO; +PROTONIX40 MG PO; +ZPAK PO
[2018-06-18 08:51] LABS: BASOPHILS 0.1 % (0-2); EOSINOPHILS 2.2 % (0-7); HEMOGLOBIN 15.3 g/dL (13.5-17.5); IMMATURE GRANULOCYTES 0.2 % (0-5); LYMPHOCYTES 10.2 % (15-50); MCH 33.9 pg (26.0-34.0); MCHC 36.4 g/dL (31.0-37.0); MCV 93.1 fL (80.0-100.0); MEAN PLATELET VOLUME 9.3 fL (7.4-10.4); MONOCYTES 5.6 % (2-11); NEUTROPHILS 81.7 % (40-80); PLATELET COUNT 191 10x3/uL (130-400); RBC 4.51 10x6/uL (4.20-6.10); RDW 12.5 % (11.5-14.5); WBC 13.7 10x3/uL (4.8-10.8)
[2018-06-18 09:01] LABS: APTT 31.6 SECONDS (22.8-39.4); INR 1.11 (0.85-1.17); PROTIME 13.8 SECONDS (11.6-15.0)
[2018-06-18 09:06] LABS: ALBUMIN 3.4 g/dL (3.4-5.0); ALKALINE PHOSPHATASE 72 U/L (46-116); ALT (SGPT) 32 U/L (10-68); BILIRUBIN - TOTAL 0.38 mg/dL (0.2-1.3); CALC OSMOLALITY 281 mosm/kg (275-300); CALCIUM 8.6 mg/dL (8.5-10.1); CARBON DIOXIDE 27.3 mmol/L (21.0-32.0); CHLORIDE - SERUM 105 mmol/L (98-107); CREATININE - SERUM 0.9 mg/dL (0.6-1.3); GLUCOSE 121 mg/dL (74-106); POTASSIUM - SERUM 4.1 mmol/L (3.5-5.1); PROTEIN - SERUM 6.7 g/dL (6.4-8.2); SODIUM 140 mmol/L (136-145); UREA NITROGEN 17 mg/dL (7-18); eGFR NON AFRICAN AMERICAN > 90 mL/min (90-120)
--- NOTE | 2018-06-18 09:10 | NUR ---
PATIENT STATES NO PAIN RELEIF WITH NTG SL, STATES IT MADE HIM NAUSEATED, DR. GILLIAM NOTIFIED.
[2018-06-18 09:17] LABS: AMYLASE - SERUM 47 U/L (25-115); CKMB 0.8 U/L (0.0-3.6); CREATINE KINASE 68 UL (21-232); LIPASE 143 U/L (73-393); PRO BNP 98 pg/mL (0-125); TROPONIN-I < 0.017 ng/mL (0.000-0.060)
[2018-06-18 09:40] LABS: D-DIMER-QUANTITATIVE < 0.27 ug/mLFEU (0.20-0.54)
[2018-06-18 10:00] VITALS: BP 118/73
[2018-06-18 11:00] VITALS: BP 122/76
--- NOTE | 2018-06-18 11:20 | NUR ---
ROCEPHIN INFUSION COMPLETE AT 1120AM.
[2018-06-18 12:00] VITALS: BP 110/69
--- NOTE | 2018-06-18 12:23 | NUR ---
ZITHROMAX INFUSION COMPLETE 1223.
[2018-06-18 13:00] VITALS: BP 123/72
--- NOTE | 2018-06-18 13:04 | MORECARE ---
CASE MANAGEMENT DISCHARGE SUMMARY PATIENT: KRISTINA ALMAZAN UNIT: [id number] ADM DATE: 06/18/18 AGE: 53 : 63 SEX: M ROOM/BED: D.E12 AUTHOR: MARGARITO WADDELL PHYSICIAN: REFERRING PHYSICIAN: KIRAN DURAN MD DATE OF SERVICE: 06/18/18 Discharge Plan Patient Name: KRISTINA ALMAZAN Facility: [facility]:[place] : 1965 Planned Disposition: Home or Self Care Anticipated Discharge Date: 06/21/18 Discharge Date: Expected LOS: 3 Initial Reviewer: [email or web address] Initial Review Date: 06/18/2018 Generated: 06/18/18 2:04 pm Patient Name: KRISTINA ALMAZAN Page [phone] at 1304 All edits/amendments must be made on the electronic document DICTATION DATE: 06/18/18 1304 NETWORK CONTROL OPERATORS SUPERVISOR: PALOMO 06/18/18 1304 RPT#: [id number] DC DATE: STATUS: ADM IN [facility] [address] [place] [address] END OF REPORT
--- NOTE | 2018-06-18 13:12 | MORECARE ---
CASE MANAGEMENT DISCHARGE SUMMARY PATIENT: KRISTINA BRICENO UNIT: [id number] ADM DATE: 06/18/18 AGE: 53 : 63 SEX: M ROOM/BED: D.E12 AUTHOR: MARGARITO WADDELL PHYSICIAN: REFERRING PHYSICIAN: KIRAN DURAN MD DATE OF SERVICE: 06/18/18 Discharge Plan Patient Name: KRISTINA BRICENO Facility: [facility]:[place] : 1965 Planned Disposition: Home or Self Care Anticipated Discharge Date: 06/21/18 Discharge Date: Expected LOS: 3 Initial Reviewer: [email or web address] Initial Review Date: 06/18/2018 Generated: 06/18/18 2:12 pm DCP- Discharge Planning Updated by [email or web address]: Gabrielle Pinedo on 06/18/18 12:[address] Patient Name: KRISTINA BRICENO Admission Status: ER Accout number: [id number] Admission Date: 06-18-2018 : 1965 Admission Diagnosis: Attending: KIRAN DURAN Current LOS: 1 Anticipated DC Date: 06-21-2018 Planned Disposition: Home or Self Care Primary Insurance: MEDICAID [place] Discharge Planning Comments: CM met with patient and his ex- to complete initial dc planning assessment. CM educated patient on the CM role and verbal consent given by patient to complete assessment. Patient lives in a duplex and his ex lives in the next apartment and assists him as needed. His sons help him mostly when he needs it. He reports they help him get in and out of the bed when needed and provides him with all his transportation needs. At discharge patient plans to return home and feels this is a safe discharge. CM discussed availability of home health, rehab services, and medical equipment. Patient denied known discharge needs at this time but stated he will decide when he gets discharged if he wants HH or other services arranged. CM will continue to follow and will assist as needed with dc plans/needs. Filter Operator: Gabrielle Pinedo RN, [facility] DCPIA - Discharge Planning Initial Assessment Updated by [email or web address]: Gabrielle Pinedo on 06/18/18 1:05 pm * Is the patient Alert and Oriented? Yes * How many steps to enter\exit or inside your home? None * PCP Dr. Young * [place] [facility] [address] * Preadmission Environment Home Alone * ADLs Partial Dependent * Partial ADLs (Assistance needed) Transfers * Equipment Cane Rolling Walker Shower Chair * Other Equipment Shower chair wont fit in his shower. * List name and contact numbers for known caregivers / representatives who currently or will assist patient after discharge: Eric Briceno - son - [phone] * Verbal permission to speak to the caregivers and representatives has been obtained from the patient. Yes * Community resources currently utilized None * Additional services required to return to the preadmission environment? No * Can the patient safely return to the preadmission environment? Yes * Has this patient been hospitalized within the prior 30 days at any hospital? No Last DP export: 06/18/18 12:04 p Patient Name: KRISTINA BRICENO Page 38614 at 1312 All edits/amendments must be made on the electronic document DICTATION DATE: 06/18/18 1311 WASH OIL COOLER OPERATOR: PALOMO 06/18/18 1311 RPT#: [id number] DC DATE: STATUS: ADM IN [facility] [address] [place] [address] END OF REPORT
[2018-06-18 14:09] VITALS: Ht 172.7 cm; Wt 76.4 kg
--- NOTE | 2018-06-18 14:32 | NUR ---
IV WITH SIGNS OF POSSIBLE INFILTRATION, DC'D CATH INTACT, IV RESITED 22G ROGHT HAND, PATENT WITH GOOD BLOOD RETURN AND EASY FLUSH.
[2018-06-18 15:01] LABS: CKMB 0.6 U/L (0.0-3.6); CREATINE KINASE 84 UL (21-232)
[2018-06-18 15:02] LABS: TROPONIN-I < 0.017 ng/mL (0.000-0.060)
--- NOTE | 2018-06-18 15:36 | NUR ---
PATIENT NOR SPOUSE FOUND IN [place] OR [place] [facility] NOTIFIED OF PATIENT LEAVING WITH S-LOC IN RIGHT HAND. THEY WILL ATTEMPT TO MAKE CONTACT WITH PATIENT AT ADDRESS LISTED ON FACE SHEET. HOME NUMBER ON FACE SHEET CALLED MULTIPLE TIME WITH NO ANSWER.
--- NOTE | 2018-06-18 15:36 | NUR ---
1500 CHECKED PATIENTS ROOM, PATIENT OR SPOUSE NOT IN ROOM, ELECTRICIAN LOCOMOTIVE STATED SHE SAW THEM LEAVE AND GO INTO [place].
--- NOTE | 2018-06-18 15:54 | MORECARE ---
CASE MANAGEMENT DISCHARGE SUMMARY PATIENT: KRISTINA BRICENO UNIT: [id number] ADM DATE: 06/18/18 AGE: 53 : 63 SEX: M ROOM/BED: D.2226 AUTHOR: MARGARITO WADDELL PHYSICIAN: REFERRING PHYSICIAN: KIRAN DURAN MD DATE OF SERVICE: 06/18/18 Discharge Plan Patient Name: KRISTINA BRICENO Facility: [facility]:[place] : 1965 Planned Disposition: Home or Self Care Anticipated Discharge Date: 06/21/18 Discharge Date: 06/18/2018 Expected LOS: 3 Initial Reviewer: [email or web address] Initial Review Date: 06/18/2018 Generated: 06/18/18 4:54 pm DCP- Discharge Planning Updated by [email or web address]: Gabrielle Pinedo on 06/18/18 12:[address] Patient Name: KRISTINA BRICENO Admission Status: ER Accout number: [id number] Admission Date: 06-18-2018 : 1965 Admission Diagnosis: Attending: KIRAN DURAN Current LOS: 1 Anticipated DC Date: 06-21-2018 Planned Disposition: Home or Self Care Primary Insurance: MEDICAID [place] Discharge Planning Comments: CM met with patient and his ex- to complete initial dc planning assessment. CM educated patient on the CM role and verbal consent given by patient to complete assessment. Patient lives in a duplex and his ex lives in the next apartment and assists him as needed. His sons help him mostly when he needs it. He reports they help him get in and out of the bed when needed and provides him with all his transportation needs. At discharge patient plans to return home and feels this is a safe discharge. CM discussed availability of home health, rehab services, and medical equipment. Patient denied known discharge needs at this time but stated he will decide when he gets discharged if he wants HH or other services arranged. CM will continue to follow and will assist as needed with dc plans/needs. Tint Layer: Gabrielle Pinedo RN, [facility] DCPIA - Discharge Planning Initial Assessment Updated by [email or web address]: Gabrielle Pinedo on 06/18/18 1:05 pm * Is the patient Alert and Oriented? Yes * How many steps to enter\exit or inside your home? None * PCP Dr. Young * Pharmacy [facility] [address] * Preadmission Environment Home Alone * ADLs Partial Dependent * Partial ADLs (Assistance needed) Transfers * Equipment Cane Rolling Walker Shower Chair * Other Equipment Shower chair wont fit in his shower. * List name and contact numbers for known caregivers / representatives who currently or will assist patient after discharge: Eric Briceno - [facility] - [phone] * Verbal permission to speak to the caregivers and representatives has been obtained from the patient. Yes * Community resources currently utilized None * Additional services required to return to the preadmission environment? No * Can the patient safely return to the preadmission environment? Yes * Has this patient been hospitalized within the prior 30 days at any hospital? No Last DP export: 06/18/18 12:12 p Patient Name: KRISTINA BRICENO Page [id number] at 1554 All edits/amendments must be made on the electronic document DICTATION DATE: 06/18/181553 TYPING SECTION CHIEF: PALOMO 06/18/181553 RPT#: [id number] DC DATE:06/18/18 STATUS: DIS IN [facility] [address] [place] [address] END OF REPORT
--- NOTE | 2018-06-21 16:47 | MORECARE ---
CASE MANAGEMENT DISCHARGE SUMMARY PATIENT: KRISTINA BRICENO UNIT: [id number] ADM DATE: 06/18/18 AGE: 53 : 63 SEX: M ROOM/BED: D.2226 AUTHOR: MARGARITO WADDELL PHYSICIAN: REFERRING PHYSICIAN: KIRAN DURAN MD DATE OF SERVICE: 06/21/18 Discharge Plan Patient Name: KRISTINA BRICENO Facility: [facility]:[place] : 1965 Planned Disposition: Home or Self Care Anticipated Discharge Date: 06/21/18 Discharge Date: 06/18/2018 Expected LOS: 3 Initial Reviewer: [email or web address] Initial Review Date: 06/18/2018 Generated: 06/21/18 5:47 pm DCP- Discharge Planning Updated by [email or web address]: Gabrielle Pinedo on 06/18/18 12:[address] Patient Name: KRISTINA BRICENO Admission Status: ER Accout number: [id number] Admission Date: 06-18-2018 : 1965 Admission Diagnosis: Attending: KIRAN DURAN Current LOS: 1 Anticipated DC Date: 06-21-2018 Planned Disposition: Home or Self Care Primary Insurance: MEDICAID [place] Discharge Planning Comments: CM met with patient and his ex- to complete initial dc planning assessment. CM educated patient on the CM role and verbal consent given by patient to complete assessment. Patient lives in a duplex and his ex lives in the next apartment and assists him as needed. His sons help him mostly when he needs it. He reports they help him get in and out of the bed when needed and provides him with all his transportation needs. At discharge patient plans to return home and feels this is a safe discharge. CM discussed availability of home health, rehab services, and medical equipment. Patient denied known discharge needs at this time but stated he will decide when he gets discharged if he wants HH or other services arranged. CM will continue to follow and will assist as needed with dc plans/needs. Environmental Technician: Gabrielle Pinedo RN, [facility] DCPIA - Discharge Planning Initial Assessment Updated by [email or web address]: Gabrielle Pinedo on 06/18/18 1:05 pm * Is the patient Alert and Oriented? Yes * How many steps to enter\exit or inside your home? None * PCP Dr. Young * Pharmacy [facility] [address] * Preadmission Environment Home Alone * ADLs Partial Dependent * Partial ADLs (Assistance needed) Transfers * Equipment Cane Rolling Walker Shower Chair * Other Equipment Shower chair wont fit in his shower. * List name and contact numbers for known caregivers / representatives who currently or will assist patient after discharge: Eric Briceno - [facility] - [phone] * Verbal permission to speak to the caregivers and representatives has been obtained from the patient. Yes * Community resources currently utilized None * Additional services required to return to the preadmission environment? No * Can the patient safely return to the preadmission environment? Yes * Has this patient been hospitalized within the prior 30 days at any hospital? No Last DP export: 06/18/18 2:54 p Patient Name: KRISTINA BRICENO Page [id number] at 1647 All edits/amendments must be made on the electronic document DICTATION DATE: 06/21/181645 ALUMINUM SIDING APPLICATOR: PALOMO 06/21/181645 RPT#: [id number] DC DATE:06/18/18 STATUS: DIS IN [facility] [address] [place] [address] END OF REPORT
--- NOTE | 2018-06-22 10:20 | CN ---
PATIENT NAME:KRISTINA ALMAZAN MEDICAL RECORD: [id number] : 63 LOCATION:D.MS [address]2226 ADMIT DATE: 06/18/18 ACCOUNT: [id number] CONSULTING PHYSICIAN: OLEGARIO MERCADO MD REFERRING PHYSICIAN: KIRAN DURAN MD DATE OF CONSULTATION: 06/18/2018 CARDIOLOGY CONSULTATION DATE OF SERVICE: 06/18/2018 DIAGNOSES: 1. Pneumonia. 2. Shortness of breath. 3. Coronary artery disease. 4. Status post coronary bypass graft surgery. 5. Chronic obstructive pulmonary disease. 6. Smoking history. 7. Hypertension. 8. Hyperlipidemia. HISTORY OF PRESENT ILLNESS: This is a gentleman who presents with increased shortness of breath, no chest pain, is found to have pneumonia. He does have a history of coronary artery disease, status post coronary bypass graft surgery. His last cardiac catheterization was in March. He had wide patency of both his grafts at that time. He has no ST-T abnormalities. PHYSICAL EXAMINATION: GENERAL APPEARANCE: Well-nourished, well-developed, appears stated age. Level of distress, comfortable. PSYCHIATRIC: Mental status, alert, normal affect. Orientation, oriented to time, place and person. EYES: Lids and conjunctiva, noninjected. No discharge, no pallor. ENT: Lips, teeth, gums, normal dentition. Oropharynx, no cyanosis, no pallor. NECK: Carotid arteries, bilateral normal upstroke, no bruits, no thrills. JUGULAR VEINS: No jugular venous pressure or distention. CERVICAL LYMPH NODES: Nontender, nonenlarged. THYROID: Not enlarged. Nontender. No nodules. LUNGS: Respiratory effort, unlabored. CHEST: Normal curvature. No thoracic deformity. No chest wall tenderness. Percussion, resonant. Auscultation, clear. No wheezes, no rales, no rhonchi. CARDIOVASCULAR: Precordial exam, nondisplaced. No heaves or pericardial thrills. Rate and rhythm, regular. Heart sounds, normal S1, normal S2. No S3, no gallop, no rub. Systolic murmur, not heard. Diastolic murmur, not heard. EXTREMITIES: No cyanosis, no edema. Peripheral pulses, full and equal in all extremities, except as noted. No bruits appreciated. ABDOMEN: Soft, nondistended. Normal aorta. No bruit. Nontender. No masses. Liver, nontender, no hepatomegaly. Spleen, nontender, no splenomegaly. MUSCULOSKELETAL: No joint tenderness. No joint swelling. No erythema. NEUROLOGICAL: Normal gait, normal strength, normal tone. SKIN: Warm and dry. OVERALL IMPRESSION: Stable cardiac, continue medical management of the pneumonia. CONSULT REPORT [id number] KRISTINA ALMAZAN TRANSINT:[id number] Voice Confirmation ID: [id number] DOCUMENT ID: [id number] OLEGARIO MERCADO MD at 1020 CC: [id number] DICTATION DATE: 06/18/18 1225 TELEPHONE AD TAKER: 06/18/18 1326 DIS IN 06/18/18 [id number] [place] [address]
== END 2018-06-18 15:50 | disposition left against medical advice (07) | DRG 190 ==
LOC: D.ER 08:10 → D.EDHOLD 10:03 → D.MS 15:24
PROVIDERS: Family Medicine; ADMIT Internal Medicine Nephrology
DX: J44.0 Chronic obstructive pulmonary disease with (acute) lower respiratory infection (principal); J18.9 Pneumonia, unspecified organism; F17.213 Nicotine dependence, cigarettes, with withdrawal; J44.1 Chronic obstructive pulmonary disease with (acute) exacerbation; I25.10 Atherosclerotic heart disease of native coronary artery without angina pectoris; I10 Essential (primary) hypertension; J40 Bronchitis, not specified as acute or chronic; E78.5 Hyperlipidemia, unspecified; Z95.1 Presence of aortocoronary bypass graft

== ENCOUNTER 2018-06-22 02:27 | Emergency (ER) | payer MEDICAID ==
[~2018-06-22] VITALS: Ht 172.7 cm; Wt 76.4 kg
[2018-06-22 02:33] VITALS: Ht 172.7 cm; Wt 76.4 kg
[2018-06-22 03:01] LABS: BASOPHILS 0.1 % (0-2); EOSINOPHILS 1.3 % (0-7); HEMATOCRIT 42.3 % (42.0-54.0); IMMATURE GRANULOCYTES 0.3 % (0-5); LYMPHOCYTES 10.7 % (15-50); MCH 33.4 pg (26.0-34.0); MCHC 35.5 g/dL (31.0-37.0); MCV 94.2 fL (80.0-100.0); MEAN PLATELET VOLUME 9.3 fL (7.4-10.4); MONOCYTES 4.6 % (2-11); PLATELET COUNT 207 10x3/uL (130-400); RBC 4.49 10x6/uL (4.20-6.10); RDW 12.5 % (11.5-14.5); WBC 11.6 10x3/uL (4.8-10.8)
[2018-06-22 03:15] LABS: ALBUMIN 3.4 g/dL (3.4-5.0); ALKALINE PHOSPHATASE 77 U/L (46-116); ALT (SGPT) 29 U/L (10-68); BILIRUBIN - TOTAL 0.26 mg/dL (0.2-1.3); CALC OSMOLALITY 282 mosm/kg (275-300); CALCIUM 9.4 mg/dL (8.5-10.1); CARBON DIOXIDE 30.8 mmol/L (21.0-32.0); CHLORIDE - SERUM 102 mmol/L (98-107); CREATININE - SERUM 0.9 mg/dL (0.6-1.3); GLUCOSE 144 mg/dL (74-106); POTASSIUM - SERUM 3.8 mmol/L (3.5-5.1); SODIUM 141 mmol/L (136-145); UREA NITROGEN 10 mg/dL (7-18); eGFR NON AFRICAN AMERICAN > 90 mL/min (90-120)
[2018-06-22 03:27] LABS: CKMB 0.6 U/L (0.0-3.6); CREATINE KINASE 72 UL (21-232)
[2018-06-22 03:30] LABS: TROPONIN-I < 0.017 ng/mL (0.000-0.060)
[2018-06-22 03:48] LABS: APTT 32.8 SECONDS (22.8-39.4); INR 1.08 (0.85-1.17); PROTIME 13.5 SECONDS (11.6-15.0)
[2018-06-22] MEDS ORDERED: CELEBREX 100 M100 MG PO (04:06)
[2018-06-22 04:34] VITALS: BP 152/92
== END 2018-06-22 04:28 | disposition home or self-care (01) ==
LOC: D.ER 02:27
PROVIDERS: Family Medicine
DX: R07.9 Chest pain, unspecified (principal); I10 Essential (primary) hypertension; Z95.1 Presence of aortocoronary bypass graft; I73.9 Peripheral vascular disease, unspecified; J44.9 Chronic obstructive pulmonary disease, unspecified; F17.200 Nicotine dependence, unspecified, uncomplicated

== ENCOUNTER 2018-09-23 17:42 | Emergency (ER) | payer MEDICAID ==
[2018-06-22 02:33] VITALS: Ht 172.7 cm; Wt 73.9 kg
[~2018-09-23] VITALS: Ht 172.7 cm; Wt 73.9 kg
[~2018-09-23 17:42] MED LIST changes: +CELEBREX 100 M100 MG PO
[2018-09-23 18:24] VITALS: BP 131/69
[2018-09-23 18:27] LABS: BASOPHILS 0.1 % (0-2); EOSINOPHILS 1.5 % (0-7); HEMATOCRIT 41.1 % (42.0-54.0); HEMOGLOBIN 15.1 g/dL (13.5-17.5); IMMATURE GRANULOCYTES 0.1 % (0-5); LYMPHOCYTES 21.5 % (15-50); MCH 34.3 pg (26.0-34.0); MCHC 36.7 g/dL (31.0-37.0); MCV 93.4 fL (80.0-100.0); MONOCYTES 8.4 % (2-11); NEUTROPHILS 68.4 % (40-80); PLATELET COUNT 190 10x3/uL (130-400); RDW 12.5 % (11.5-14.5); WBC 8.5 10x3/uL (4.8-10.8)
[2018-09-23 18:39] LABS: ALBUMIN 3.5 g/dL (3.4-5.0); ALKALINE PHOSPHATASE 80 U/L (46-116); ALT (SGPT) 20 U/L (10-68); BILIRUBIN - TOTAL 0.31 mg/dL (0.2-1.3); CALC OSMOLALITY 276 mosm/kg (275-300); CALCIUM 8.4 mg/dL (8.5-10.1); CARBON DIOXIDE 27.1 mmol/L (21.0-32.0); CHLORIDE - SERUM 104 mmol/L (98-107); CREATININE - SERUM 0.9 mg/dL (0.6-1.3); GLUCOSE 115 mg/dL (74-106); POTASSIUM - SERUM 3.5 mmol/L (3.5-5.1); PROTEIN - SERUM 6.9 g/dL (6.4-8.2); SODIUM 138 mmol/L (136-145); UREA NITROGEN 12 mg/dL (7-18); eGFR NON AFRICAN AMERICAN > 90 mL/min (90-120)
[2018-09-23] MEDS ORDERED: ZPAK PO (19:23)
[2018-09-23 19:44] LABS: APPEARANCE CLEAR (CLEAR); BILIRUBIN NEGATIVE (NEGATIVE); COLOR STRAW (YELLOW); GLUCOSE NEGATIVE (NEGATIVE); KETONE NEGATIVE (NEGATIVE); NITRITE NEGATIVE (NEGATIVE); PROTEIN NEGATIVE (NEGATIVE); UROBILINOGEN NORMAL (NORMAL)
== END 2018-09-23 19:38 | disposition left against medical advice (07) ==
LOC: D.ER 17:42
PROVIDERS: Emergency Medicine
DX: J40 Bronchitis, not specified as acute or chronic (principal); J44.9 Chronic obstructive pulmonary disease, unspecified; F17.200 Nicotine dependence, unspecified, uncomplicated; Z95.1 Presence of aortocoronary bypass graft

== ENCOUNTER 2019-02-10 12:02 | Emergency (ER) | payer MEDICAID ==
[~2019-02-10] VITALS: Ht 172.7 cm; Wt 75.9 kg
[2019-02-10 12:08] VITALS: BP 122/72; Ht 172.7 cm; Wt 75.9 kg
[2019-02-10] MEDS ORDERED: VOLTAREN75 MG PO (14:05)
== END 2019-02-10 14:49 | disposition home or self-care (01) ==
LOC: D.ER 12:02
DX: S39.012A Strain of muscle, fascia and tendon of lower back, initial encounter (principal); V89.2XXA Person injured in unspecified motor-vehicle accident, traffic, initial encounter